=== PATIENT | male | born 1940 | race Caucasian/White ===

== ENCOUNTER → 2016-11-29 | Outpatient (CLI) | payer OTHER ==
[~2016-11-29] MED LIST: AGG PO; CALCCAP17 PO; CHOL20007 PO; CLTP PO; ERGO1CAP35 PO; FAMO20TA11 PO; FLV1 PO; FRS/40 PO; GLC500 PO; GLIP-172 PO; LRT5 PO; MCR25 PO; METH2.5T PO; METO50TA16 PO; POTA-327 PO; POTA20TA16 PO; PRED-301 PO; VTMD PO
[2016-11-29 18:27] LABS: AST/SGOT 12 U/L (15-37); BLOOD UREA NITROGEN 19 mg/dl (7-18); BUN/CREATININE RATIO 13.4 (10-20); CALCIUM 9.4 mg/dl (8.5-10.1); CARBON DIOXIDE 27 mmol/L (21-32); CHLORIDE 111 mmol/L (98-107); CHOLESTEROL 122 mg/dl (0-200); GLUCOSE 87 mg/dl (70-99); POTASSIUM 4.1 mmol/L (3.5-5.1); SODIUM 144 mmol/L (136-145)
[2016-11-29 18:34] LABS: ALB/GLOB RATIO 1.4 (0.9-2); ALKALINE PHOSPHATASE 50 U/L (45-117); ALT/SGPT 23 U/L (12-78); CHOLESTEROL/HDL RATIO 2.4; HDL CHOLESTEROL 50 mg/dl; TRIGLYCERIDES 138 mg/dl (0-150); VERY LOW DENSITY LIPOPROT CALC 28 mg/dl
[2016-11-29 18:50] LABS: RATIO 11.3 mcg/mg (0-30.0)
[2016-11-30 07:49] LABS: ESTIMATED AVERAGE GLUCOSE 151 mg/dl; HA1C FLAG Normal (Normal)
== END | disposition home or self-care (01) ==
LOC: C.LABSPEC 17:36
PROVIDERS: ATTEND Internal Medicine
DX: E11.9 Type 2 diabetes mellitus without complications (principal); I10 Essential (primary) hypertension; E78.5 Hyperlipidemia, unspecified

== ENCOUNTER 2016-12-06 13:45 | Emergency (ER) | payer OTHER ==
[~2016-12-06] VITALS: Ht 167.6 cm; Wt 93.0 kg
[~2016-12-06 13:45] MED LIST changes: -CALCCAP17 PO; -CHOL20007 PO; -FAMO20TA11 PO; -FRS/40 PO; -GLIP-172 PO; -METH2.5T PO; -METO50TA16 PO; -POTA20TA16 PO; -PRED-301 PO; -VTMD PO
[2016-12-06 14:01] VITALS: TEMP 37.2; Ht 167.6 cm; Wt 93.0 kg
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
[2016-12-06] MEDS ORDERED: FLV1 PO (14:56)
[2016-12-06] MEDS ORDERED: VTMD PO (14:56)
[2016-12-06 15:22] VITALS: BP 135/73; PULSE 72; O2SAT 95
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
[2017-02-22] MEDS ORDERED: FAMO20TA11 PO (09:02)
[2017-02-22] MEDS ORDERED: METO50TA16 PO (09:02)
[2017-02-22] MEDS ORDERED: PRED-301 PO (09:02)
[2017-02-22] MEDS ORDERED: METH2.5T PO (09:02)
[2017-02-22] MEDS ORDERED: FRS/40 PO (09:02)
[2017-02-22] MEDS ORDERED: POTA20TA16 PO (14:56)
[2017-02-22] MEDS ORDERED: CALCCAP17 PO (14:56)
[2017-02-22] MEDS ORDERED: GLC500 PO (14:56)
[2017-02-22] MEDS ORDERED: GLIP-172 PO (14:56)
[2017-02-22] MEDS ORDERED: AGG PO (14:56)
[2017-02-24] MEDS ORDERED: PRED-301 PO (17:04)
== END 2016-12-06 15:24 | disposition home or self-care (01) ==
LOC: EDBD 13:45 → C.EDC 13:46
DX: S60.222A Contusion of left hand, initial encounter (principal); V49.40XA Driver injured in collision with unspecified motor vehicles in traffic accident, initial encounter; I10 Essential (primary) hypertension; M06.9 Rheumatoid arthritis, unspecified; Z86.73 Personal history of transient ischemic attack (TIA), and cerebral infarction without residual deficits; E11.9 Type 2 diabetes mellitus without complications; Z83.3 Family history of diabetes mellitus; Z82.49 Family history of ischemic heart disease and other diseases of the circulatory system

== ENCOUNTER 2017-02-22 16:48 | Inpatient (IN) | payer OTHER ==
[~2017-02-22] VITALS: Ht 168.9 cm; Wt 89.6 kg
[~2017-02-22 16:48] MED LIST changes: +CALCCAP17 PO; -CLTP PO; -ERGO1CAP35 PO; +FAMO20TA11 PO; +FRS/40 PO; +GLIP-172 PO; -LRT5 PO; -MCR25 PO; +METH2.5T PO; +METO50TA16 PO; -POTA-327 PO; +POTA20TA16 PO; +PRED-301 PO; +VTMD PO
[2017-02-22] MEDS ORDERED: SODIUM CHLORIDE 0.9% 1000ML 1,000 ML IV STA (17:18)
[2017-02-22] MEDS ORDERED: CHOL20007 PO (17:20)
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
--- NOTE | 2017-02-22 18:02 | DIAGNOSTIC IMAGING REPORT ---
LEFT KNEE 3 VIEWS HISTORY: Left knee pain. COMPARISON: None. FINDINGS: No acute fracture or dislocation. Old, healed distal femur fracture. Mild tricompartmental osteoarthritis. Lateral soft tissue swelling. No radiopaque foreign bodies. No significant knee effusion. IMPRESSION: No acute fractures. Lateral soft tissue swelling. Electronically signed by: Yash Carreon M.D. 02/22/2017 6:01 PM Dictated Date/Time: 02/22/2017 5:59 PM
[2017-02-22 18:16] LABS: BASO % 0.3 %; BASO ABS # 0.03 K/uL (0-0.2); COMPLETE YES; EOS % 1.2 %; IG% 0.6 %; LYMPH % 7.2 %; LYMPH ABS # 0.78 K/uL (1.2-3.4); MEAN CELL VOLUME 100.5 fL (80-100); MEAN CORPUSCULAR HEMOGLOBIN 30.2 pg (25-34); MEAN PLATELET VOLUME 8.6 fL (7.4-10.4); MONO % 3.2 %; NEUT % 87.5 %; PLATELET COUNT 278 K/uL (130-400); RED BLOOD COUNT 3.68 M/uL (4.7-6.1); WHITE BLOOD COUNT 10.88 K/uL (4.8-10.8)
[2017-02-22 18:18] LABS: URINE APPEARANCE CLEAR (CLEAR); URINE BILIRUBIN NEG (NEG); URINE COLOR YELLOW; URINE NITRITE NEG (NEG); URINE SPECIFIC GRAVITY 1.015 (1.000-1.030); UROBILINOGEN NEG (NEG)
[2017-02-22 18:21] LABS: MANUAL MICROSCOPIC REQUIRED? NO; REVIEW REQ? NO
[2017-02-22 18:24] LABS: INR 0.9 (0.9-1.1); PARTIAL THROMBOPLASTIN RATIO 0.9
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
[2017-02-22 18:41] LABS: ALKALINE PHOSPHATASE 63 U/L (45-117); AST/SGOT 11 U/L (15-37); BLOOD UREA NITROGEN 17 mg/dl (7-18); BUN/CREATININE RATIO 14.4 (10-20); CALCIUM 9.7 mg/dl (8.5-10.1); CARBON DIOXIDE 27 mmol/L (21-32); CHLORIDE 110 mmol/L (98-107); GLUCOSE 134 mg/dl (70-99); POTASSIUM 4.2 mmol/L (3.5-5.1); SODIUM 144 mmol/L (136-145)
[2017-02-22] MEDS ORDERED: MoRPHine SULFATE 4 MG/ML 1 ML CARP\\VIAL IV STA (18:51)
[2017-02-22 18:52] LABS: ALT/SGPT 26 U/L (12-78)
--- NOTE | 2017-02-22 19:38 | DIAGNOSTIC IMAGING REPORT ---
LEFT SHOULDER 3 VIEWS HISTORY: Left shoulder pain. COMPARISON: None. FINDINGS: There is no fracture or dislocation. Soft tissues are unremarkable. No radiopaque foreign bodies. The left clavicle is intact. Mild osteoarthritis at the glenohumeral and AC joints. IMPRESSION: No fractures. Electronically signed by: Yash Carreon M.D. 02/22/2017 7:37 PM Dictated Date/Time: 02/22/2017 7:36 PM
[2017-02-22 20:51] VITALS: BP 144/93; PULSE 64; TEMP 36.9; O2SAT 95; Ht 168.9 cm; Wt 89.6 kg
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
[2017-02-22] MEDS: INSULIN ASPART 100 UNITS/ML 3 ML PEN SC SCH (21:00)
[2017-02-22] MEDS ORDERED: GLUCOSE 10 TABS/TUBE PO PRN (21:00)
[2017-02-22] MEDS ORDERED: GLUCOSE 40% GEL 15 GM TUBE PO PRN (21:00)
[2017-02-22] MEDS ORDERED: DEXTROSE 50% 50 ML SYR IV PRN (21:00)
[2017-02-22] MEDS ORDERED: GLUCAGON FOR INJ 1 MG VIAL SQ PRN (21:00)
[2017-02-22] MEDS: ACETAMINOPHEN 325 MG TAB PO PRN (21:13)
[2017-02-22] MEDS: POTASSIUM CHLORIDE 20 MEQ TABCR PO SCH (21:37)
[2017-02-22] MEDS: DIPYRIDAMOLE/ASPIRIN CAP PO SCH (21:37)
[2017-02-22] MEDS: FAMOTIDINE 20 MG TAB PO SCH (21:38)
[2017-02-22] MEDS: HEPARIN SOD 5000 UNIT/0.5 ML CARP SQ SCH (21:42)
[2017-02-22] MEDS ORDERED: DIPHTHERIA/TETANUS/PERTUSSIS 0.5 ML SYR/VIAL IM. ONE (21:45)
[2017-02-23] VITALS (8 sets, daily range): BP systolic 123–168; BP diastolic 65–92; PULSE 56–71; TEMP 36.6–37.2; O2SAT 95–97
[2017-02-23 01:03] LABS: CKMB/CK RATIO 5.6 (0-3.0)
[2017-02-23] MEDS: ACETAMINOPHEN 325 MG TAB PO PRN ×3 (03:41→23:20)
[2017-02-23 06:52] LABS: BASO % 0.2 %; BASO ABS # 0.01 K/uL (0-0.2); COMPLETE YES; HEMATOCRIT 31.6 % (42-52); IG% 0.3 %; LYMPH % 15.1 %; LYMPH ABS # 0.98 K/uL (1.2-3.4); MEAN CELL VOLUME 102.6 fL (80-100); MEAN CORPUSCULAR HEMOGLOBIN 32.1 pg (25-34); MEAN CORPUSCULAR HGB CONC 31.3 g/dl (32-36); MEAN PLATELET VOLUME 8.5 fL (7.4-10.4); MONO % 6.8 %; NEUT % 75.6 %; PLATELET COUNT 196 K/uL (130-400); RED BLOOD COUNT 3.08 M/uL (4.7-6.1)
[2017-02-23 07:09] LABS: BLOOD UREA NITROGEN 14 mg/dl (7-18); CALCIUM 9.1 mg/dl (8.5-10.1); CARBON DIOXIDE 28 mmol/L (21-32); CHLORIDE 111 mmol/L (98-107); GLUCOSE 148 mg/dl (70-99); MAGNESIUM 1.9 mg/dl (1.8-2.4); POTASSIUM 4.3 mmol/L (3.5-5.1); SODIUM 143 mmol/L (136-145)
[2017-02-23] MEDS: DIPYRIDAMOLE/ASPIRIN CAP PO SCH ×2 (07:52→19:57)
[2017-02-23] MEDS: METOPROLOL TARTRATE 50 MG TAB PO SCH (07:52)
[2017-02-23] MEDS: FAMOTIDINE 20 MG TAB PO SCH ×2 (07:53→19:56)
[2017-02-23] MEDS: FUROSEMIDE 40 MG TAB PO SCH (07:53)
[2017-02-23] MEDS: HEPARIN SOD 5000 UNIT/0.5 ML CARP SQ SCH ×2 (07:54→21:00)
[2017-02-23 07:59] LABS: ESTIMATED AVERAGE GLUCOSE 146 mg/dl; HA1C FLAG Normal (Normal)
[2017-02-23] MEDS: POTASSIUM CHLORIDE 20 MEQ TABCR PO SCH ×2 (08:37→19:56)
[2017-02-23] MEDS: INSULIN ASPART 100 UNITS/ML 3 ML PEN SC SCH ×4 (08:40→21:00)
[2017-02-23 13:11] LABS: CKMB/CK RATIO 2.1 (0-3.0)
--- NOTE | 2017-02-23 17:36 | EEG Procedure Note ---
EEG Procedure Note Date of Service Feb 23, 2017. Start / End Times Start Time: 9:53 AM End Time: 10:18 AM Referring Physician Fabiola Simental History This is a 76-year-old male with syncopal episode. EEG for further evaluation of possible seizure etiology. Home Medication List Scheduled Calcium Carbonate-Vitamin D (Calcium/Vitamin D), 1 CAP PO BID Cholecalciferol (Vitamin D3), 1 TAB PO DAILY Dipyridamole/Aspirin (Aggrenox 25-200 mg), 1 CAP PO BID Famotidine (Pepcid), 20 MG PO BID Folic Acid (Folic Acid), 1 MG PO 6XWK Furosemide (Lasix), 40 MG PO DAILY Glipizide (Glipizide Xl), 2.5 MG PO BID Metformin HCl (Metformin HCl), 1,000 MG PO BID Methotrexate (Methotrexate), 2.5 MG PO DIRECTED Metoprolol Tartrate (Lopressor) (Lopressor), 50 MG PO DAILY Potassium Ext Rel (Klor-Con), 20 MEQ PO BID Prednisone (Prednisone), 5 MG PO DIRECTED Inpatient Medication List Current Inpatient Medications Medications (Trade) Dose Ordered Sig/Sánchez Route Start Time Stop Time Status Last Admin Dose Admin Heparin Sodium (Porcine) (Heparin Sq 5000 Unit/0.5ml) 5,000 unit Q12 SQ 02/22/17 21:00 03/24/17 20:59 02/23/17 07:54 5,000 UNIT Acetaminophen (Tylenol Tab) 650 mg Q4H PRN PO 02/22/17 20:00 03/24/17 19:59 02/23/17 12:18 650 MG Dipyridamole/ Aspirin (Aggrenox 200MG/ 25MG Cap) 1 cap BID PO 02/22/17 21:00 03/24/17 20:59 02/23/17 07:52 1 CAP Famotidine (Pepcid Tab) 20 mg BID PO 02/22/17 21:00 03/24/17 20:59 02/23/17 07:53 20 MG Furosemide (Lasix Tab) 40 mg DAILY PO 02/23/17 09:00 03/25/17 08:59 02/23/17 07:53 40 MG Metoprolol Tartrate (Lopressor Tab) 50 mg DAILY PO 02/23/17 09:00 03/25/17 08:59 02/23/17 07:52 50 MG Potassium Chloride (Klor-Con Tab) 20 meq BID PO 02/22/17 21:00 03/24/17 20:59 02/22/17 21:37 20 MEQ Insulin Aspart (novoLOG ASPART) SLIDING SCALE G... ACHS SC 02/22/17 21:00 03/24/17 20:59 02/23/17 16:47 5 UNITS Glucose (Glucose 40% Gel) 15-30 GRAMS 15 GRAMS... UD PRN PO 02/22/17 21:00 03/24/17 20:59 Glucose (Glucose Chew Tab) 4-8 Tablets 4 Tabl... UD PRN PO 02/22/17 21:00 03/24/17 20:59 Dextrose (Dextrose 50% 50ML Syringe) 25-50ML OF 50% DW IV FOR... UD PRN IV 02/22/17 21:00 03/24/17 20:59 Glucagon (Glucagon Inj) 1 mg UD PRN SQ 02/22/17 21:00 03/24/17 20:59 Methotrexate (Methotrexate Tab) 15 mg ONE ONCE PO 02/24/17 09:00 02/24/17 09:01 Folic Acid (Folvite Tab) 1 mg QAM PO 02/23/17 09:00 03/25/17 08:59 02/23/17 08:37 1 MG Description This is a 21 electrode EEG with a single channel dedicated to limited EKG. The electrodes were placed in accordance with the International 10-20 system. At the start of the recording the patient was in an awake state. Background was well organized and composed of symmetric mixed alpha and beta frequencies with excess theta frequencies. There was a symmetric well-formed moderate amplitude 7 -8 Hz posterior dominant rhythm that was reactive to eye opening and closure. Hyperventilation and Intermittent photic stimulation were not done. Sleep transients were not recorded Interpretation This is an abnormal routine EEG secondary to mild background slowing. There was no electrographic seizures or epileptiform discharges. Clinical Correlation This EEG indicates a mild encephalopathy of nonspecific etiology.
[2017-02-24] VITALS (7 sets, daily range): BP systolic 114–131; BP diastolic 69–78; PULSE 72–86; TEMP 36.7–37; O2SAT 95–97
[2017-02-24 06:42] LABS: BASO % 0.2 %; BASO ABS # 0.01 K/uL (0-0.2); COMPLETE YES; EOS % 2.9 %; HEMATOCRIT 32.9 % (42-52); IG% 0.5 %; LYMPH % 13.7 %; LYMPH ABS # 0.91 K/uL (1.2-3.4); MEAN CELL VOLUME 100.9 fL (80-100); MEAN CORPUSCULAR HEMOGLOBIN 32.2 pg (25-34); MEAN CORPUSCULAR HGB CONC 31.9 g/dl (32-36); MONO % 10.8 %; NEUT % 71.9 %; PLATELET COUNT 182 K/uL (130-400); RED BLOOD COUNT 3.26 M/uL (4.7-6.1); WHITE BLOOD COUNT 6.65 K/uL (4.8-10.8)
[2017-02-24 07:11] LABS: CREATININE 1.1 mg/dl (0.60-1.40); POTASSIUM 3.9 mmol/L (3.5-5.1)
[2017-02-24 07:29] LABS: CALCIUM 9.2 mg/dl (8.5-10.1)
[2017-02-24] MEDS: INSULIN ASPART 100 UNITS/ML 3 ML PEN SC SCH ×3 (07:34→16:52)
[2017-02-24] MEDS: ACETAMINOPHEN 325 MG TAB PO PRN (07:37)
[2017-02-24] MEDS ORDERED: METHOTREXATE 2.5 MG TAB PO ONE (09:00)
[2017-02-24] MEDS ORDERED: ATROPINE SULFATE 0.1 MG/ML 5ML SYR ONE (09:11)
[2017-02-24] MEDS ORDERED: METOPROLOL TARTRATE 1 MG/ML VIAL ONE (09:11)
[2017-02-24] MEDS ORDERED: DOBUTamine HCL 12.5 MG/ML 20 ML VIAL ONE (09:11)
[2017-02-24] MEDS ORDERED: PERFLUTREN LIPID MICROSPHERE (DEFINITY) IV ONE (10:21)
[2017-02-24] MEDS: DIPYRIDAMOLE/ASPIRIN CAP PO SCH (10:32)
[2017-02-24] MEDS: FUROSEMIDE 40 MG TAB PO SCH (10:33)
[2017-02-24] MEDS: METOPROLOL TARTRATE 50 MG TAB PO SCH (10:33)
[2017-02-24] MEDS: FAMOTIDINE 20 MG TAB PO SCH (10:33)
[2017-02-24] MEDS: POTASSIUM CHLORIDE 20 MEQ TABCR PO SCH (10:33)
[2017-02-24] MEDS: HEPARIN SOD 5000 UNIT/0.5 ML CARP SQ SCH (10:34)
--- NOTE | 2017-02-24 14:41 | DOBUTAMINE ECHO ---
*NOTICE TO RECEIVING LIBERTARIAN AGENCY This information is strictly Confidential and protected under [place] law. [place] law prohibits you from making any further disclosure of this information unless further disclosure is expressly permitted by the written consent of the person to whom it pertains or is authorized by law. A general authorization for the release of medical or other information is not sufficient for this purpose. Hospital accepts no responsibility if the information is made available to any other person, INCLUDING THE PATIENT. Interpretation Summary * Name: RADHA FRANZ Study Date: 02/24/2017 09:19 AM BP: 122/74 mmHg * Patient Location: .2E\S\E202\S\1 HR: 78 * : 1940 (M/d/yyyy) Gender: Male Height: 66 in * Age: 76 yrs Ethnicity: [place] Weight: 196 lb * Ordering Physician: Scotty Xiong * Referring Physician: Self, Referred * Performed By: Kate Be RCS * * Reason For Study: SYNCOPE * BSA: 2.0 m2 * -- Conclusions -- * 1. Negative dobutamine stress echocardiogram for myocardial ischemia at greater than 100% maximum predicted heart rate. * 2. No dobutamine induced chest pain. * 3. No EKG changes. * 4. Baseline echocardiogram notes normal left ventricular systolic function and mild left ventricular hypertrophy. Procedure Details * DOBUTAMINE ECHO, CPT#37643 * ECHO COLOR FLOW, CPT #[id number] * ECHO DOPPLER, CPT #85421 * A contrast injection of Definity was performed to improve assessment of LV function. * Contrast was injected into an intravenous site in the left arm. * One vial of Definity ultrasound contrast was diluted in normal saline to a total volume of 10 ml. A total of '6' ml of solution was administered during imaging. * Lot # [id number] of Definity utilized for procedure. * Expiration date 1 MAR 14. * The attending nurse who injected the contrast agent was DONNA MARKS RN. Left Ventricle * The left ventricle is normal in size. * There is mild concentric left ventricular hypertrophy. * Ejection Fraction = 55-60%. * Resting wall motion: Normal. Stress wall motion: Appropriate increase in Left ventricular systolic function and decrease in cavity size. No stress induced segmental wall motion abnormalities. Right Ventricle * The right ventricle is grossly normal size. * Right ventricular function cannot be assessed due to poor image quality. Atria * The left atrium is mildly dilated. * Right atrium not well visualized. * There is no evidence of atrial septal defect, but resolution does not allow assessment for a patent foramen ovale. Mitral Valve * The mitral valve is grossly normal. * There is no mitral valve stenosis. * Significant mitral regurgitation is absent. Tricuspid Valve * The tricuspid valve is not well visualized, but is grossly normal. * Significant tricuspid regurgitation is absent. Aortic Valve * The aortic valve is not well visualized. * The aortic valve opens well. * No hemodynamically significant valvular aortic stenosis. * No aortic regurgitation is present. Pulmonic Valve * The pulmonary valve is not well seen, but the Doppler examination is normal without significant regurgitation or stenosis. Great Vessels * The aortic root is normal size. Pericardium * There is no pericardial effusion. Stress Parameters * The baseline ECG displays normal sinus rhythm. * The stress ECG response was normal MMode 2D Measurements and Calculations IVSd 2.0 cm IVSs 2.2 cm LVIDd 4.1 cm LVIDs 3.1 cm LVPWd 1.7 cm LVPWs 2.2 cm IVS/LVPW 1.2 FS 26.0 % EDV(Teich) 75.6 ml ESV(Teich) 36.6 ml EF(Teich) 51.6 % EDV(cubed) 70.5 ml ESV(cubed) 28.5 ml EF(cubed) 59.5 % % IVS thick 11.5 % % LVPW thick 30.1 % LV mass(C)d 337.2 grams LV mass(C)dI 170.1 grams/m\S\2 LV mass(C)s 322.6 grams LV mass(C)sI 162.7 grams/m\S\2 SV(Teich) 39.0 ml SI(Teich) 19.6 ml/m\S\2 SV(cubed) 42.0 ml SI(cubed) 21.2 ml/m\S\2 Ao root diam 3.6 cm Ao root area 10.1 cm\S\2 ACS 2.0 cm LA dimension 3.4 cm LA/Ao 0.96 LVOT diam 2.1 cm LVOT area 3.4 cm\S\2 LVAd ap4 31.2 cm\S\2 LVLd ap4 8.1 cm EDV(MOD-sp4) 97.2 ml EDV(sp4-el) 101.8 ml LVAs ap4 17.4 cm\S\2 LVLs ap4 6.3 cm ESV(MOD-sp4) 43.6 ml ESV(sp4-el) 41.3 ml EF(MOD-sp4) 55.1 % EF(sp4-el) 59.5 % SV(MOD-sp4) 53.6 ml SI(MOD-sp4) 27.0 ml/m\S\2 SV(sp4-el) 60.5 ml SI(sp4-el) 30.5 ml/m\S\2 Doppler Measurements and Calculations MV E max ana maría 69.6 cm/sec MV A max ana maría 59.9 cm/sec MV E/A 1.2 MV P1/2t max ana maría 70.6 cm/sec MV P1/2t 68.0 msec MVA(P1/2t) 3.2 cm\S\2 MV dec slope 304.1 cm/sec\S\2 MV dec time 0.24 sec Ao V2 max 138.9 cm/sec Ao max PG 7.7 mmHg Ao max PG (full) 5.2 mmHg JESSICA(V,A) 1.9 cm\S\2 JESSICA(V,D) 1.9 cm\S\2 LV V1 max PG 2.5 mmHg LV V1 max 79.5 cm/sec PA V2 max 97.7 cm/sec PA max PG 3.8 mmHg
[2017-02-24] MEDS ORDERED: PRED-301 PO (17:04)
--- NOTE | 2017-02-24 17:07 | Discharge Instructions ---
Discharge Instructions Date of Service Feb 24, 2017. Admission Reason for Admission: Syncope And Collapse Discharge Discharge Diagnosis / Problem: syncope and collapse. rheumatoid arthritis, dibetes mellitus 2. Discharge Goals Goal(s): Decrease discomfort, Improve function, Increase independence, Improve disease control Activity Recommendations Activity Limitations: resume your previous activity . Instructions / Follow-Up Instructions / Follow-Up dr de la cruz in one week Current Hospital Diet Patient's current hospital diet: Diabetes Type 2 Diet, AHA Diet (Heart Healthy) Discharge Diet Recommended Diet: Diabetes Type 2 Diet Pending Studies Studies pending at discharge: no Laboratory Results Hemoglobin A1c Test 02/23/17 06:21 Range/Units Estimated Average Glucose 146 mg/dl Hemoglobin A1c 6.7 H 4.5-5.6 % Lipid Panel Test 11/29/16 15:30 Range/Units Triglycerides Level 138 0-150 mg/dl Cholesterol Level 122 0-200 mg/dl HDL Cholesterol 50 mg/dl LDL Cholesterol Direct 61 mg/dl Cholesterol/HDL Ratio 2.4 LDL Cholesterol, Calculated mg/dl Medical Emergencies . Who to Call and When: Medical Emergencies: If at any time you feel your situation is an emergency, please call 911 immediately. . Non-Emergent Contact Non-Emergency issues call your: Primary Care Provider . . "Provider Documentation" section prepared by Scotty De La Cruz. . VTE Core Measure Inpt VTE Proph given/why not?: Treatment not indicated
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
== END 2017-02-24 18:08 | disposition home or self-care (01) | DRG 312 ==
LOC: EDBD 16:48 → C.EDB 16:49 → C.2E 20:12 → ENRESERV 20:26
PROVIDERS: ADMIT Internal Medicine; ATTEND Internal Medicine
DX: R55 Syncope and collapse (principal); E11.9 Type 2 diabetes mellitus without complications; I10 Essential (primary) hypertension; E78.5 Hyperlipidemia, unspecified; K21.9 Gastro-esophageal reflux disease without esophagitis; M81.0 Age-related osteoporosis without current pathological fracture; M06.9 Rheumatoid arthritis, unspecified; Z79.899 Other long term (current) drug therapy; Z88.2 Allergy status to sulfonamides; Z86.73 Personal history of transient ischemic attack (TIA), and cerebral infarction without residual deficits; Z87.442 Personal history of urinary calculi; Z80.8 Family history of malignant neoplasm of other organs or systems; Z84.89 Family history of other specified conditions

== ENCOUNTER → 2017-03-22 | Outpatient (CLI) | payer OTHER ==
[~2017-03-22] MED LIST changes: +CHOL20007 PO; -VTMD PO
--- NOTE | 2017-03-22 15:26 | DIAGNOSTIC IMAGING REPORT ---
RIGHT HAND MIN 3 VIEWS ROUTINE CLINICAL HISTORY: ARTHRITIS Right pain COMPARISON: None. DISCUSSION: Mild degenerative change of the interphalangeal as well as metacarpal phalangeal joints. Subtle periarticular osteopenia. No significant marginal erosions. No significant reactive osteophytic change There is no evidence for soft tissue swelling. IMPRESSION: Potential early rheumatoid change. The above report was generated using voice recognition software. It may contain grammatical, syntax or spelling errors. Electronically signed by: Ashu Brito M.D. 03/22/2017 3:24 PM Dictated Date/Time: 03/22/2017 3:24 PM
--- NOTE | 2017-03-22 15:26 | DIAGNOSTIC IMAGING REPORT ---
LEFT HAND MIN 3 VIEWS ROUTINE CLINICAL HISTORY: 76 years-old Male presenting with RHEUMATOID ARTHRITIS BILATERAL. TECHNIQUE: Frontal, oblique, and lateral views of the left hand were obtained. COMPARISON: 12/06/2016. FINDINGS: Interval decrease in diffuse soft tissue swelling. Mild osteopenia. No acute fracture or malalignment. No significant degenerative change. Radiocarpal and intercarpal articulations normal. IMPRESSION: Interval resolution of diffuse soft tissue swelling. No acute osseous injury. Electronically signed by: James Go M.D. 03/22/2017 3:24 PM Dictated Date/Time: 03/22/2017 3:23 PM
--- NOTE | 2017-03-22 15:28 | DIAGNOSTIC IMAGING REPORT ---
RIGHT ANKLE MIN 3 VIEWS ROUTINE CLINICAL HISTORY: ARTHRITIS Right pain COMPARISON: None. DISCUSSION: Small heel spur. The osseous structures are otherwise unremarkable. Bony mineralization is within normal limits. There is no evidence for soft tissue swelling. IMPRESSION: Heel spur. Otherwise negative study The above report was generated using voice recognition software. It may contain grammatical, syntax or spelling errors. Electronically signed by: Ashu Brito M.D. 03/22/2017 3:27 PM Dictated Date/Time: 03/22/2017 3:26 PM
--- NOTE | 2017-03-22 15:29 | DIAGNOSTIC IMAGING REPORT ---
LEFT ANKLE MIN 3 VIEWS ROUTINE CLINICAL HISTORY: CHRONIC ANKLE PAIN, BILATERAL, PT WENT TO LAB FIRST pain COMPARISON: None. DISCUSSION: Small heel spur. All bony structures otherwise are unremarkable. Cortical margins are intact. Subtalar joint is within normal limits. There is no evidence for soft tissue swelling. IMPRESSION: Small heel spur. Otherwise negative study. The above report was generated using voice recognition software. It may contain grammatical, syntax or spelling errors. Electronically signed by: Ashu Brito M.D. 03/22/2017 3:28 PM Dictated Date/Time: 03/22/2017 3:27 PM
[2017-03-22 15:53] LABS: BASO % 0.3 %; BASO ABS # 0.02 K/uL (0-0.2); COMPLETE YES; EOS % 2.3 %; HEMATOCRIT 35.4 % (42-52); IG% 0.3 %; LYMPH % 13.9 %; MEAN CELL VOLUME 102.9 fL (80-100); MEAN CORPUSCULAR HEMOGLOBIN 31.7 pg (25-34); MEAN CORPUSCULAR HGB CONC 30.8 g/dl (32-36); MEAN PLATELET VOLUME 8.7 fL (7.4-10.4); MONO % 3.3 %; NEUT % 79.9 %; PLATELET COUNT 236 K/uL (130-400); RED BLOOD COUNT 3.44 M/uL (4.7-6.1); WHITE BLOOD COUNT 7.92 K/uL (4.8-10.8)
[2017-03-22 16:17] LABS: ALT/SGPT 20 U/L (12-78); AST/SGOT 10 U/L (15-37)
[2017-03-22 16:20] LABS: RHEUMATOID FACTOR 24.4 U/mL (0-15)
== END | disposition home or self-care (01) ==
LOC: C.RAD1850 14:34
PROVIDERS: ATTEND Internal Medicine Rheumatology
DX: M25.571 Pain in right ankle and joints of right foot (principal); M25.572 Pain in left ankle and joints of left foot; Z51.81 Encounter for therapeutic drug level monitoring; Z79.52 Long term (current) use of systemic steroids; Z79.899 Other long term (current) drug therapy; M06.9 Rheumatoid arthritis, unspecified

== ENCOUNTER → 2017-07-25 | Outpatient (CLI) | payer OTHER ==
[~2017-07-25] MED LIST changes: -PRED-301 PO
[2017-07-25 18:17] LABS: BASO % 0.2 %; BASO ABS # 0.02 K/uL (0-0.2); COMPLETE YES; EOS % 2.4 %; HEMATOCRIT 35.2 % (42-52); IG% 0.1 %; LYMPH % 19.6 %; LYMPH ABS # 1.76 K/uL (1.2-3.4); MEAN CELL VOLUME 102.9 fL (80-100); MEAN CORPUSCULAR HEMOGLOBIN 31.6 pg (25-34); MEAN CORPUSCULAR HGB CONC 30.7 g/dl (32-36); MEAN PLATELET VOLUME 9.3 fL (7.4-10.4); NEUT % 75.7 %; PLATELET COUNT 209 K/uL (130-400); RED BLOOD COUNT 3.42 M/uL (4.7-6.1)
[2017-07-25 18:27] LABS: ALT/SGPT 21 U/L (12-78); AST/SGOT 15 U/L (15-37); BLOOD UREA NITROGEN 22 mg/dl (7-18); BUN/CREATININE RATIO 13.6 (10-20); CALCIUM 9.3 mg/dl (8.5-10.1); CARBON DIOXIDE 27 mmol/L (21-32); CHLORIDE 106 mmol/L (98-107); CHOLESTEROL 104 mg/dl (0-200); CREATININE 1.59 mg/dl (0.60-1.40); GLUCOSE 62 mg/dl (70-99); POTASSIUM 3.9 mmol/L (3.5-5.1); SODIUM 140 mmol/L (136-145)
[2017-07-25 18:38] LABS: ALB/GLOB RATIO 1.2 (0.9-2); ALKALINE PHOSPHATASE 67 U/L (45-117); CHOLESTEROL/HDL RATIO 2.2; HDL CHOLESTEROL 48 mg/dl; THYROID STIMULATING HORMONE 0.754 uIu/ml (0.300-4.500); TRIGLYCERIDES 123 mg/dl (0-150); VERY LOW DENSITY LIPOPROT CALC 25 mg/dl
[2017-07-26 06:27] LABS: ESTIMATED AVERAGE GLUCOSE 123 mg/dl; HA1C FLAG Normal (Normal)
== END | disposition home or self-care (01) ==
LOC: C.LABSPEC 17:41
PROVIDERS: ATTEND Internal Medicine
DX: R63.4 Abnormal weight loss (principal); I10 Essential (primary) hypertension; E11.9 Type 2 diabetes mellitus without complications; E78.5 Hyperlipidemia, unspecified; N40.0 Benign prostatic hyperplasia without lower urinary tract symptoms

== ENCOUNTER → 2017-08-30 | Outpatient (CLI) | payer OTHER ==
[~2017-08-30] MED LIST changes: +POTA-639 PO; -POTA20TA16 PO
--- NOTE | 2017-08-30 16:29 | DIAGNOSTIC IMAGING REPORT ---
L-SPINE MIN 4 VIEWS ROUTINE CLINICAL HISTORY: 77 years-old Male presenting with M06.9 Rheumatoid [id number] Long-term current use of stero. TECHNIQUE: Frontal, bilateral oblique, lateral, and coned in lateral views of the lumbar spine were obtained. COMPARISON: None. FINDINGS: Mild levocurvature. 6 mm of grade 1 anterolisthesis of L4 on L5. Otherwise normal lordosis. Vertebral body heights maintained. Intervertebral disc height loss at L4-5 and L5-S1, where there is vacuum disc phenomenon. Multilevel degenerative changes with prominent anterior osteophytosis at T12-L1. No evidence of a pars defect despite the anterolisthesis, which is likely degenerative in etiology. Facet arthropathy noted in the lower lumbar spine with resulting in osseous neural foraminal narrowing suspected at L4-5 and L5-S1. No evidence of a compression deformity. The lower thoracic spine demonstrates suggestion of syndesmophytosis, which is not apparent in the lumbar spine. Atherosclerosis. IMPRESSION: 1. Multilevel degenerative changes in the lumbar spine with grade 1 anterolisthesis of L4 on L5 likely degenerative in etiology. Suspected osseous neural foraminal narrowing L4-5 and L5-S1. 2. Suggestion of syndesmophytosis in the thoracic spine, which is not evident in the lumbar spine. This can be seen in setting of inflammatory arthropathies. Electronically signed by: James Go M.D. 08/30/2017 4:28 PM Dictated Date/Time: 08/30/2017 4:24 PM
[2017-08-30 16:42] LABS: BASO % 0.3 %; BASO ABS # 0.03 K/uL (0-0.2); EOS % 2.9 %; EOS ABS # 0.26 K/uL (0-0.5); HEMATOCRIT 32.2 % (42-52); HEMOGLOBIN 10.1 g/dL (14.0-18.0); IG# 0.03 K/uL (0.00-0.02); LYMPH % 17.2 %; LYMPH ABS # 1.56 K/uL (1.2-3.4); MEAN CELL VOLUME 101.9 fL (80-100); MEAN CORPUSCULAR HGB CONC 31.4 g/dl (32-36); MEAN PLATELET VOLUME 8.8 fL (7.4-10.4); MONO % 3.4 %; MONO ABS # 0.31 K/uL (0.11-0.59); NEUT % 75.9 %; PLATELET COUNT 200 K/uL (130-400); RED CELL DISTRIBUTION WIDTH CV 15.4 % (11.5-14.5); RED CELL DISTRIBUTION WIDTH SD 54.4 fL (36.4-46.3); WHITE BLOOD COUNT 9.09 K/uL (4.8-10.8)
[2017-08-30 17:25] LABS: ALBUMIN 3.5 gm/dl (3.4-5.0); ALT/SGPT 22 U/L (12-78); AST/SGOT 15 U/L (15-37); CREATININE 1.31 mg/dl (0.60-1.40)
[2017-08-30 17:27] LABS: ALKALINE PHOSPHATASE 61 U/L (45-117); TOTAL PROTEIN 6.5 gm/dl (6.4-8.2)
== END | disposition home or self-care (01) ==
LOC: C.RAD1850 15:54
PROVIDERS: ATTEND Internal Medicine Rheumatology
DX: M06.9 Rheumatoid arthritis, unspecified (principal); M54.5 Low back pain; Z79.899 Other long term (current) drug therapy

== ENCOUNTER → 2017-08-31 | Outpatient (CLI) | payer OTHER ==
[~2017-08-31] MED LIST changes: -POTA-639 PO; +POTA20TA16 PO
[2017-09-14 16:58] LABS: FECAL OCCULT BLOOD #1 NEGATIVE (NEGATIVE); FECAL OCCULT BLOOD #2 NEGATIVE (NEGATIVE); FECAL OCCULT BLOOD #3 NEGATIVE (NEGATIVE)
== END | disposition home or self-care (01) ==
LOC: C.LABSPEC 14:58
PROVIDERS: ATTEND Internal Medicine
DX: Z12.11 Encounter for screening for malignant neoplasm of colon (principal)

== ENCOUNTER → 2017-11-30 | Outpatient (CLI) | payer OTHER ==
[~2017-11-30] MED LIST changes: +POTA-639 PO; -POTA20TA16 PO
[2017-11-30 18:22] LABS: BASO % 0.1 %; BASO ABS # 0.01 K/uL (0-0.2); EOS % 2.3 %; EOS ABS # 0.17 K/uL (0-0.5); HEMATOCRIT 35.3 % (42-52); HEMOGLOBIN 10.7 g/dL (14.0-18.0); IG# 0.02 K/uL (0.00-0.02); LYMPH % 16.4 %; LYMPH ABS # 1.21 K/uL (1.2-3.4); MEAN CELL VOLUME 101.4 fL (80-100); MEAN CORPUSCULAR HEMOGLOBIN 30.7 pg (25-34); MEAN CORPUSCULAR HGB CONC 30.3 g/dl (32-36); MEAN PLATELET VOLUME 9.3 fL (7.4-10.4); MONO % 6.4 %; MONO ABS # 0.47 K/uL (0.11-0.59); NEUT % 74.5 %; NEUT ABS # 5.48 K/uL (1.4-6.5); PLATELET COUNT 215 K/uL (130-400); RED CELL DISTRIBUTION WIDTH CV 15.6 % (11.5-14.5); RED CELL DISTRIBUTION WIDTH SD 54.7 fL (36.4-46.3); WHITE BLOOD COUNT 7.36 K/uL (4.8-10.8)
[2017-11-30 18:31] LABS: ALBUMIN 3.6 gm/dl (3.4-5.0); ALT/SGPT 21 U/L (12-78); AST/SGOT 16 U/L (15-37); BLOOD UREA NITROGEN 25 mg/dl (7-18); CALCIUM 9.1 mg/dl (8.5-10.1); CARBON DIOXIDE 27 mmol/L (21-32); GLUCOSE 64 mg/dl (70-99); POTASSIUM 3.7 mmol/L (3.5-5.1); SODIUM 142 mmol/L (136-145)
[2017-11-30 18:41] LABS: ALKALINE PHOSPHATASE 60 U/L (45-117); TOTAL PROTEIN 6.7 gm/dl (6.4-8.2)
[2017-12-01 06:39] LABS: HEMOGLOBIN A1C 6.1 % (4.5-5.6)
== END | disposition home or self-care (01) ==
LOC: C.LABSPEC 17:46
PROVIDERS: ATTEND Internal Medicine
DX: R63.4 Abnormal weight loss (principal); I10 Essential (primary) hypertension; E11.9 Type 2 diabetes mellitus without complications; M06.9 Rheumatoid arthritis, unspecified; R19.7 Diarrhea, unspecified

== ENCOUNTER → 2017-12-07 | Outpatient (CLI) | payer OTHER | END | disposition home or self-care (01) | LOC: C.PATHSPEC 17:51 | PROVIDERS: ATTEND Internal Medicine | DX: C44.91 Basal cell carcinoma of skin, unspecified (principal) ==

== ENCOUNTER → 2018-03-30 | Outpatient (CLI) | payer OTHER ==
[2018-03-30 15:43] LABS: BASO % 0.3 %; BASO ABS # 0.02 K/uL (0-0.2); EOS % 2.6 %; EOS ABS # 0.17 K/uL (0-0.5); HEMOGLOBIN 10.5 g/dL (14.0-18.0); IG# 0.02 K/uL (0.00-0.02); LYMPH % 19.2 %; LYMPH ABS # 1.27 K/uL (1.2-3.4); MEAN CELL VOLUME 103.7 fL (80-100); MEAN CORPUSCULAR HGB CONC 30.9 g/dl (32-36); MEAN PLATELET VOLUME 9.6 fL (7.4-10.4); MONO % 7.2 %; MONO ABS # 0.48 K/uL (0.11-0.59); NEUT % 70.4 %; NEUT ABS # 4.67 K/uL (1.4-6.5); PLATELET COUNT 143 K/uL (130-400); RED CELL DISTRIBUTION WIDTH CV 16.1 % (11.5-14.5); RED CELL DISTRIBUTION WIDTH SD 58.6 fL (36.4-46.3); WHITE BLOOD COUNT 6.63 K/uL (4.8-10.8)
[2018-03-30 15:54] LABS: ALBUMIN 3.7 gm/dl (3.4-5.0); ALKALINE PHOSPHATASE 78 U/L (45-117); ALT/SGPT 32 U/L (12-78); AST/SGOT 14 U/L (15-37); TOTAL PROTEIN 6.9 gm/dl (6.4-8.2)
== END | disposition home or self-care (01) ==
LOC: C.LAB1850 14:34
PROVIDERS: ATTEND Internal Medicine Rheumatology
DX: M05.9 Rheumatoid arthritis with rheumatoid factor, unspecified (principal)